=== PATIENT | female | born 1930 | race Caucasian/White ===

== ENCOUNTER 2016-11-20 18:40 | Emergency (ER) | payer MEDICARE, BC ==
--- NOTE | ~2016-11-20 | CT4 ---
[facility] A Service of [facility] RADIOLOGY TEXT RESULTS PATIENT: RUDY LOYD LOCATION: SED : 32 UNIT #: [id number] AGE: [address]: BLAKE ATKINSON PA-C SEX: F ORDER DR: [id number] [address] [address] [id number] E MR#: [id number] Acc #: [id number] NAME: RUDY LOYD. : 1930 SEX: F STUDY DATE/TIME: 11/20/2016 22:18 UNIT: SED ROOM: STUDY DESCRIPTION: CT Abd and Pelv Wo Cont Attending Physician: Blake Atkinson Pa-C Ordering Physician: Physician Non-Staff Primary Care Physician: Erik Rosado M.D. MEDICAL IMAGING REPORT This report is preliminary unless electronic signature is present. EXAM CT abdomen and pelvis without contrast INDICATION Decreasing urination since yesterday. Decreased urine output since yesterday. PROCEDURE Unenhanced CT of the abdomen and pelvis. This CT exam was performed with one or more of the following radiation dose reduction techniques: Automatic exposure control, adjustment of mA and/or kV according to patient size, and iterative reconstruction. COMPARISON 08/30/2008 FINDINGS Cardiomegaly. ABDOMEN WITHOUT CONTRAST: Cirrhosis. There is a nonspecific 1.7 cm hypoattenuating region in the left hepatic lobe. Spleen is mildly enlarged at 13.4 cm. 1.4 cm cyst in the left kidney. The adrenal glands, pancreas and gallbladder have an unremarkable unenhanced appearance. Moderate colonic stool. PELVIS WITHOUT CONTRAST: Previous hysterectomy, no pelvic mass or fluid. No aggressive appearing bone lesion. IMPRESSION 1. There is a small cyst in the left kidney; otherwise, kidneys show no acute finding. [facility] A Service of [facility] RADIOLOGY TEXT RESULTS PATIENT: RUDY LOYD LOCATION: SED : 32 UNIT #: [id number] AGE: [address]: ATKINSON,BLAKE PA-C SEX: F ORDER DR: 2. Cirrhosis. Nonspecific 1.7 cm low-attenuation region in the left hepatic lobe. Consider evaluation with MRI or liver protocol CT. 3. Mild splenomegaly. Dictated by... Sarthak Owens M.D. THIS IS AN ELECTRONICALLY VERIFIED REPORT Sarthak Owens M.D. at 11/21/2016 10:24 PM EELeno/ted TD: 11/21/2016 02:04 JOB #: [id number] MEDICAL IMAGING REPORT Page 1 of 1
--- NOTE | ~2016-11-20 | CR63 ---
[facility] A Service of [facility] RADIOLOGY TEXT RESULTS PATIENT: RUDY LOYD LOCATION: SED : 32 UNIT #: [id number] AGE: [address]: BLAKE ATKINSON PA-C SEX: F ORDER DR: [id number] [address] [address] [id number] E MR#: [id number] Acc #: [id number] NAME: RUDY LOYD. : 1930 SEX: F STUDY DATE/TIME: 11/20/2016 22:11 UNIT: SED ROOM: STUDY DESCRIPTION: CR Chest 2 View Attending Physician: Blake Atkinson Pa-C Ordering Physician: Physician Non-Staff Primary Care Physician: Erik Rosado M.D. MEDICAL IMAGING REPORT This report is preliminary unless electronic signature is present. EXAM PA and lateral chest, 11/20/2016 HISTORY Shortness of air since yesterday. FINDINGS Moderate cardiac enlargement. Tortuous descending thoracic aorta. Pulmonary vascularity is within normal limits. Small bilateral pleural effusions. Mild linear atelectasis or scarring in both bases. No focal infiltrates. Left subclavian pacer leads extend into the right atrium and right ventricle. IMPRESSION 1. No definite active disease. 2. Moderate cardiac enlargement. 3. Mild bibasilar linear atelectasis or scarring. Dictated by... Harpreet Chamberlain M.D. THIS IS AN ELECTRONICALLY VERIFIED REPORT Harpreet Chamberlain M.D. at 11/21/2016 10:57 PM DFAnna/greg TD: 11/21/2016 02:06 JOB #: [id number] MEDICAL IMAGING REPORT [facility] A Service of [facility] RADIOLOGY TEXT RESULTS PATIENT: RUDY LOYD LOCATION: SED : 32 UNIT #: [id number] AGE: [address]: BLAKE ATKINSON PA-C SEX: F ORDER DR: Page 1 of 1
[~2016-11-20 18:40] MED LIST: ACCUPRIL; ACETAMINOPHEN PO; ALBUTEROL17 GM; ALBUTEROL2.5 MG/0.5; ASPIRIN PO; ATARAX; ATENOLOL; ATENOLOL PO; BENAZEPRIL PO; BENZAPRIL PO; BUDESONIDE0.5 MG/2 M; BUMEX1 MG; CLONIDINE PO; COUMADIN PO; COUMADIN1 MG; DILTIAZEM 24HR240 M2; DILTIAZEM ER240 M1; DYAZIDE 37.5/251 CAP PO; FERROUS GLUCON324 MG; HYDROXYZINE HCL25 M1; IBUPROFEN PO; KCL PO; LANOXIN PO; LASIX PO; LISINOPRIL PO; LISINOPRIL2.5 MG; MAXZIDE 75/50 T1 TAB; METOLAZONE2.5 MG; NORVASC PO; SYMBICORT INH; VIT D PO; ZETIA PO; ZYLOPRIM PO; ZYLOPRIM100 MG
[2016-11-20 19:29] LABS: URINE SOURCE CLEAN CATCH
[2016-11-20 19:32] LABS: URINE APPEARANCE CLEAR; URINE BLOOD TRACE-INTACT (NEG); URINE COLOR YELLOW; URINE GLUCOSE NEG (NORM); URINE KETONE TRACE (NEG); URINE LEUKOCYTE ESTERASE 1+ (NEG); URINE NITRATE NEG (NEG); URINE PROTEIN TRACE (NEG)
[2016-11-20 19:34] LABS: BASOPHIL# 0.1 X10e3 (0-0.3); BASOPHIL% 1.1 % (0-2.5); EOSINOPHIL# 0.2 X10e3 (0-0.7); EOSINOPHIL% 2.4 % (0.0-7.0); HEMATOCRIT 36.4 % (35.0-45.0); LYMPHOCYTE% 10.7 % (17.0-45.0); MEAN CELL VOLUME 82.1 FL (83-96); MEAN CORPUSCULAR HEMOGLOBIN 27.2 PG (28-34); MEAN CORPUSCULAR HGB CONC 33.1 g/dL (30-36); MEAN PLATELET VOLUME 7.2 FL (6.5-11.5); MONOCYTE# 1.2 X10e3 (0-1.0); MONOCYTE% 12.4 % (3.0-12.0); NEUTROPHIL% 73.4 % (40-75); PLATELET COUNT 302 X10e3 (140-420); RED BLOOD COUNT 4.43 X10e (3.90-5.30); WHITE BLOOD COUNT 9.5 X10e3 (4.0-10.5)
[2016-11-20 19:36] LABS: DIFF IND NO; MICRO INDICATED? YES; URINE BILIRUBIN NEG (NEG)
[2016-11-20 19:37] LABS: CULTURE INDICATED? YES; URINE BACTERIA 1+ (NEG); URINE MUCUS PRESENT; URINE SQUAMOUS EPITHELIAL CELL FEW /[HPF]
[2016-11-20 19:41] LABS: INR 3.7; PROTHROMBIN TIME (PATIENT) 42.5 SECONDS (9.5-12.4)
[2016-11-20 19:47] LABS: ALBUMIN SERUM 3.5 g/dL (3.5-5.0); BILIRUBIN,TOTAL 0.7 mg/dL (0.2-2.0); CREATININE SERUM 1.1 mg/dL (0.6-1.4); GLOM FILT RATE Estimated 46.1 mL/min (>60); POTASSIUM 3.3 mmol/L (3.5-5.1); PROTEIN TOTAL SERUM 7.3 g/dL (6.0-8.3)
[2016-11-20 19:48] LABS: PARTIAL THROMBOPLASTIN TIME 36.8 SECONDS (25.6-38.1)
== END 2016-11-20 23:41 | disposition home or self-care (01) ==
LOC: SED 18:40
PROVIDERS: Physician Assistant
DX: N30.90 Cystitis, unspecified without hematuria (principal); K74.60 Unspecified cirrhosis of liver; E11.9 Type 2 diabetes mellitus without complications; I10 Essential (primary) hypertension; I48.91 Unspecified atrial fibrillation; Z90.710 Acquired absence of both cervix and uterus; Z98.890 Other specified postprocedural states
CPT/HCPCS: 36415; 71020; 74176; 80053; 81003; 83880; 85025; 85610; 85730; 87086; 96374; 99284; J0696